=== PATIENT | male | born 1990 | race Caucasian/White ===

== ENCOUNTER 2019-02-27 02:20 | Emergency (ER) | payer BC, SELFPAY ==
--- NOTE | 2019-02-27 02:21 | ED.GENADUL_ITS ---
Discharge Plan Disposition Patient Disposition: HOME Condition: Good Discharge Details Chief Complaint: EyeProblem Clinical Impression: Irritation of left eye Primary Care Provider: Azra Ferrell ED Provider: Marc Nolan Home Meds and New Rx's Prescriptions: Continued methadone 40 mg Tablet,Soluble 110 mg PO DAILY RF: 0 Discharge Instructions Additional Instructions: Try [id number] Visine type eyedrops for the next day. Follow-up with your eye physician if continues to bother you on Friday. Return to ED for increased pain, swelling, change in vision, other concerns or problems. Referrals: [facility] [Outside] Medical Decision Making No obvious foreign body seen. No fluorescein uptake. Localized erythema and swelling noted medial upper left eyelid when inverted. No obvious foreign body. Eyelid swipe a couple of times with Q-tip. Will place Pepito lens and irrigate. Patient did not really tolerate Pepito lens. Suspect the erythema and localized swelling is causing the irritation he is feeling. Will try [id number] Visine drops but I suspect this is likely to get better shortly on its own. He may follow-up with his eye doctor in the next couple days if not resolved. Return to ED for increasing pain, swelling, vision change. HPI General Mode of arrival: ambulatory . Date/Time Provider Initiated Documentation: 02/27/19 02:21 . Limitations to Documentation: no limitations . Information obtained by: patient and RN notes reviewed . HPI Narrative: Patient presents to ED with left eye irritation. 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 Is not sure what got into his eye today but has had irritation despite irrigating a number of times. He feels like it stuck up under the eyelid. He denies other complaints. Related Data Home Medications Medication Instructions Recorded Confirmed methadone 110 mg PO DAILY 02/27/19 02/27/19 Allergies Allergy/AdvReac Type Severity Reaction Status Date / Time No Known Allergies Allergy Unverified 02/27/19 02:25 Review of Systems Eyes Eyes: Denies change in vision, Reports irritation and Denies eye pain ENT Ears, Nose, Mouth, and Throat: Denies nasal congestion, Denies sinus pain and Denies sore throat [facility] Medical History (Updated 02/27/19 @ 03:06 by Marc Nolan MD) History of substance abuse (Chronic) Vertigo (Inactive) Social History Smoking/Tobacco Use Status: Current every day Alcohol Intake: current Alcohol Intake frequency: holidays/special occasions only Drug use: Daily Substance use type: marijuana Do you feel safe at home: Yes Do you feel safe in your relationship?: Yes Exam Const General: cooperative, healthy appearing and comfortable Nutritional Appearance: well nourished Orientation: alert and oriented x3 HENMT Head: normocephalic and atraumatic Face and sinus: normal facial exam Eyes Periorbital: periorbital findings normal Eyelids: eyelid abnormality left upper eyelid (localized erythema/swelling medial aspect noted when everted) erythema and swelling; no crusting or scaling of lid margins Conjunctivae: conjunctival abnormality left conjunctival injection Sclera: sclerae normal Cornea: corneas normal and fluorescein used Pupils: PERRL EOM: EOM intact bilaterally Other: No foreign body or corneal abrasion seen with slit lamp exam. Upper eyelid everted and swiped with Q-tip, no obvious foreign body.
[2019-02-27 02:24] VITALS: BP 168/92; PULSE 112; RESP 20; TEMP 36.7; O2SAT 100
[2019-02-27] MEDS: Tetracaine 0.5% 4 ML BTL (02:57)
[2019-02-27] MEDS: Fluorescein STRIPS 100/BOX 1 MG (02:57)
[2019-02-27 03:44] VITALS: BP 168/92; PULSE 112; RESP 20; TEMP 36.7; O2SAT 100
== END 2019-02-27 03:45 | disposition home or self-care (01) ==
PROVIDERS: Emergency Provider Emergency Medicine; PCP Nurse Practitioner Family
DX: H57.89 Other specified disorders of eye and adnexa (principal); H57.12 Ocular pain, left eye; H02.844 Edema of left upper eyelid
CPT/HCPCS: 99284; 99283

== ENCOUNTER 2020-01-21 03:10 | Outpatient (CLI) | payer BC, SELFPAY ==
[2020-01-21 10:14] LABS: Anion Gap 8.1 mmol/L (3-11); BUN 7 mg/dL (7-18); CO2 27.9 mmol/L (21.0-32.0); CREATININE 0.87 mg/dL (0.70-1.30); Calcium 9.2 mg/dL (8.5-10.1); Calculated LDL 126 mg/dL (<100); Chloride 105 mmol/L (98-107); Cholesterol 195 mg/dL (<200); Glucose 94 mg/dL (74-106); HDL Cholesterol 48 mg/dL (40-60); Sodium 141 mmol/L (136-145); Triglyceride 108 mg/dL (<150)
== END 2020-01-21 03:30 ==
PROVIDERS: PCP Student in an Organized Health Care Education/Training Program; Visit Provider Student in an Organized Health Care Education/Training Program
DX: E86.0 Dehydration (principal); Z13.220 Encounter for screening for lipoid disorders
CPT/HCPCS: 36415; 80048; 80061

== ENCOUNTER 2020-02-11 03:30 | Outpatient (CLI) | payer BC, SELFPAY ==
[2020-02-11 12:02] LABS: TSH (W/Ref FT4) 1.69 uIU/mL (0.36-3.74)
== END 2020-02-11 03:50 ==
PROVIDERS: PCP Student in an Organized Health Care Education/Training Program; Visit Provider Student in an Organized Health Care Education/Training Program
DX: R63.4 Abnormal weight loss (principal)
CPT/HCPCS: 36415; 84443

== ENCOUNTER 2022-04-02 10:58 | Outpatient (CLI) | payer BC, SELFPAY ==
--- NOTE | 2022-04-02 10:30 | DI.RAD_ITS ---
Exam(s) XR CHEST 2V PA LATERAL EXAM: XR CHEST 2V PA LATERAL CLINICAL HISTORY: intermittent cough, SOB, R05.9, R06.02. TECHNIQUE: 2D digital imaging was performed. COMPARISON: No exams were available for comparison FINDINGS: 2 views: Heart size is normal. The mediastinum is not widened. There is bilateral hyperinflation but no infiltrates nor pleural effusions. No pneumothorax. IMPRESSION: Pulmonary hyperinflation. No infiltrates. DATA REPOSITORY: RADIATION DOSE DELIVERED:
== END 2022-04-02 11:18 ==
LOC: DI 11:00
PROVIDERS: PCP Student in an Organized Health Care Education/Training Program; Visit Provider Nurse Practitioner
DX: R05.9 Cough, unspecified (principal); R06.02 Shortness of breath; R91.8 Other nonspecific abnormal finding of lung field
CPT/HCPCS: 71046

== ENCOUNTER 2022-07-05 01:49 | Outpatient (CLI) | payer BC, SELFPAY ==
[2022-07-05 09:32] LABS: Abs Immature Grans 0.01 10^3/uL (0.0-0.06); Absolute Basophil Count 0.02 10^3/uL (0.0-0.2); Absolute Eosinophil Count 0.06 10^3/uL (0.0-0.7); Absolute Lymphocyte Count 1.95 10^3/uL (1.2-3.4); Absolute Monocyte Count 0.38 10^3/uL (0.1-0.8); Absolute Neutrophil Count 2.99 10^3/uL (1.2-6.7); Basophils % 0.4; Eosinophils % 1.1; HCT 38.6 % (40.0-50.0); HGB 13.2 g/dL (13.5-17.5); Immature Grans % 0.2; MCH 30.7 pg (27.0-33.0); MCHC 34.2 % (32.0-36.0); MCV 90 fL (80-95); MPV 8.7 fL (8.0-11.0); Neutrophils % 55.3; Platelet Count 292 10^3/uL (130-400); RDW 11.9 % (11.8-14.1); RDW-SD 39.3 fL; WBC 5.41 10^3/uL (4.4-10.8)
[2022-07-05 10:14] LABS: ALT 25 U/L (16-63); AST 19 U/L (15-37); Albumin 4.1 g/dL (3.4-5.0); Alkaline Phosphatase 71 U/L (46-116); Anion Gap 8.1 mmol/L (3-11); BUN 12 mg/dL (7-18); Bilirubin, Total 0.4 mg/dL (0.2-1.0); CO2 30.9 mmol/L (21.0-32.0); CREATININE 0.8 mg/dL (0.70-1.30); Calcium 8.7 mg/dL (8.5-10.1); Calculated LDL 110 mg/dL (<100); Chloride 103 mmol/L (98-107); Cholesterol 176 mg/dL (<200); Glucose 102 mg/dL (74-106); HDL Cholesterol 57 mg/dL (40-60); Potassium 4.2 mmol/L (3.5-5.1); Sodium 142 mmol/L (136-145); TSH (W/Ref FT4) 1.56 uIU/mL (0.36-3.74); Total Protein 7.3 g/dL (6.4-8.2); Triglyceride 47 mg/dL (<150)
[2022-07-11 14:10] LABS: Testosterone, Free 10.2 ng/dL (4.85-19.0); Testosterone, Total 509 ng/dL (240-950)
[2022-07-11 19:47] LABS: Cortisol, Free 0.125 mcg/dL
== END 2022-07-05 01:50 | disposition home or self-care (01) ==
LOC: LBO 01:50
PROVIDERS: PCP Student in an Organized Health Care Education/Training Program; Visit Provider Student in an Organized Health Care Education/Training Program
DX: D47.09 Other mast cell neoplasms of uncertain behavior (principal); E27.40 Unspecified adrenocortical insufficiency; E34.9 Endocrine disorder, unspecified; L81.9 Disorder of pigmentation, unspecified; R23.2 Flushing; F11.20 Opioid dependence, uncomplicated; Z13.220 Encounter for screening for lipoid disorders; E27.9 Disorder of adrenal gland, unspecified
CPT/HCPCS: 36415; 80053; 80061; 82530; 82533; 83520; 84402; 84403; 84443; 85025

== ENCOUNTER 2022-09-22 23:56 | Outpatient (CLI) | payer BC, SELFPAY | END 2022-09-22 23:57 | disposition home or self-care (01) | LOC: DI.KIM 23:58 | PROVIDERS: PCP Student in an Organized Health Care Education/Training Program; Visit Provider Student in an Organized Health Care Education/Training Program | DX: Z13.6 Encounter for screening for cardiovascular disorders (principal) | CPT/HCPCS: 93010 ==

== ENCOUNTER 2022-10-22 03:23 | Outpatient (CLI) | payer BC, SELFPAY ==
[2022-10-22 14:06] LABS: Abs Immature Grans 0.01 10^3/uL (0.0-0.06); Absolute Basophil Count 0.03 10^3/uL (0.0-0.2); Absolute Eosinophil Count 0.13 10^3/uL (0.0-0.7); Absolute Lymphocyte Count 2.42 10^3/uL (1.2-3.4); Absolute Monocyte Count 0.48 10^3/uL (0.1-0.8); Absolute Neutrophil Count 3.59 10^3/uL (1.2-6.7); Basophils % 0.5; HCT 41.3 % (40.0-50.0); HGB 14.5 g/dL (13.5-17.5); Immature Grans % 0.2; Lymphocytes % 36.3; MCH 30.8 pg (27.0-33.0); MCHC 35.1 % (32.0-36.0); MCV 88 fL (80-95); MPV 8.9 fL (8.0-11.0); Monocytes % 7.2; Neutrophils % 53.8; Platelet Count 314 10^3/uL (130-400); RBC 4.71 10^6/uL (4.36-5.78); RDW 11.8 % (11.8-14.1); RDW-SD 38.2 fL; WBC 6.66 10^3/uL (4.4-10.8)
[2022-10-22 14:55] LABS: Hemoglobin A1C 5.2 % (<5.7)
== END 2022-10-22 03:24 | disposition home or self-care (01) ==
LOC: LBO 03:23
PROVIDERS: PCP Student in an Organized Health Care Education/Training Program; Visit Provider Student in an Organized Health Care Education/Training Program
DX: D64.9 Anemia, unspecified (principal); R35.1 Nocturia; R23.2 Flushing; E27.40 Unspecified adrenocortical insufficiency; R68.89 Other general symptoms and signs; Z79.899 Other long term (current) drug therapy
CPT/HCPCS: 36415; 83036; 85025

== ENCOUNTER 2022-11-22 07:37 | Outpatient (CLI) | payer BC, SELFPAY ==
--- NOTE | 2022-11-22 07:30 | RT.EKG_ITS ---
APPROVED REPORT Exam: Resting ECG Reason for Exam: Evaluate and establish baseline Patient Location: O HR:96 bpm ECG Measurements Heart Rate 96 AXIS WA 138 P 72 QRSd 95 QRS 66 QT 411 T -29 QTc 520 Conclusion Sinus rhythm...normal P axis, V-rate 50- 99 Borderline T abnormalities, inferior leads...T flat/neg, II III aVF Borderline ST elevation, anterior leads...ST >0.15mV in V1-V4
== END 2022-11-22 07:38 | disposition home or self-care (01) ==
LOC: DI.KIM 07:39
PROVIDERS: PCP Student in an Organized Health Care Education/Training Program; Visit Provider Student in an Organized Health Care Education/Training Program
DX: F11.20 Opioid dependence, uncomplicated (principal)
CPT/HCPCS: 93010

== ENCOUNTER 2023-01-03 07:31 | Outpatient (CLI) | payer BC, SELFPAY ==
--- NOTE | 2023-01-03 07:30 | RT.EKG_ITS ---
APPROVED REPORT Exam: Resting ECG Reason for Exam: repeat EKG Patient Location: O HR:81 bpm ECG Measurements Heart Rate 81 AXIS NH 133 P 79 QRSd 100 QRS 66 QT 388 T 59 QTc 451 Conclusion Sinus rhythm...normal P axis, V-rate 50- 99 Normal Electrocardiogram
== END 2023-01-03 07:32 | disposition home or self-care (01) ==
LOC: DI.KIM 07:32
PROVIDERS: PCP Student in an Organized Health Care Education/Training Program; Visit Provider Student in an Organized Health Care Education/Training Program
DX: F11.20 Opioid dependence, uncomplicated (principal)
CPT/HCPCS: 93010

== ENCOUNTER 2023-01-31 07:28 | Outpatient (CLI) | payer BC, SELFPAY ==
--- NOTE | 2023-01-31 07:15 | RT.EKG_ITS ---
APPROVED REPORT Exam: Resting ECG Reason for Exam: Monitoring QT prolongation Patient Location: O HR:77 bpm ECG Measurements Heart Rate 77 AXIS WV 135 P 68 QRSd 91 QRS 60 QT 410 T 51 QTc 465 Conclusion Sinus rhythm...normal P axis, V-rate 50- 99 Probable left atrial enlargement...P >50mS, <-0.10mV V1 RSR' in V1 or V2, probably normal variant...small R' only Probable left ventricular hypertrophy...multiple LVH criteria Baseline wander in lead(s) V1
== END 2023-01-31 07:29 | disposition home or self-care (01) ==
LOC: DI.KIM 07:29
PROVIDERS: PCP Student in an Organized Health Care Education/Training Program; Visit Provider Student in an Organized Health Care Education/Training Program
DX: F11.20 Opioid dependence, uncomplicated (principal); R94.31 Abnormal electrocardiogram [ECG] [EKG]
CPT/HCPCS: 93010

== ENCOUNTER 2023-04-11 02:11 | Outpatient (CLI) | payer BC, SELFPAY ==
[2023-04-11 08:07] LABS: Abs Immature Grans 0.02 10^3/uL (0.0-0.06); Absolute Basophil Count 0.03 10^3/uL (0.0-0.2); Absolute Eosinophil Count 0.07 10^3/uL (0.0-0.7); Absolute Monocyte Count 0.59 10^3/uL (0.1-0.8); Absolute Neutrophil Count 4.74 10^3/uL (1.2-6.7); Basophils % 0.4; Eosinophils % 0.9; HCT 40.7 % (40.0-50.0); HGB 13.9 g/dL (13.5-17.5); Immature Grans % 0.3; Lymphocytes % 26.8; MCH 29.8 pg (27.0-33.0); MCHC 34.2 % (32.0-36.0); MCV 87 fL (80-95); MPV 8.6 fL (8.0-11.0); Monocytes % 7.9; Neutrophils % 63.7; Platelet Count 300 10^3/uL (130-400); RBC 4.66 10^6/uL (4.36-5.78); RDW 11.9 % (11.8-14.1); RDW-SD 38.4 fL; WBC 7.45 10^3/uL (4.4-10.8)
[2023-04-11 09:29] LABS: Iron 103 ug/dL (65-175); Total Iron Binding Capacity 335 ug/dL (250-450); Transferrin Sat 31 % (20-55)
[2023-04-11 09:30] LABS: ALT 33 U/L (16-63); AST 26 U/L (15-37); Albumin 4.3 g/dL (3.4-5.0); Alkaline Phosphatase 72 U/L (46-116); Anion Gap 10.2 mmol/L (3-11); BUN 12 mg/dL (7-18); Bilirubin, Total 0.5 mg/dL (0.2-1.0); CO2 29.8 mmol/L (21.0-32.0); CREATININE 0.8 mg/dL (0.70-1.30); Calcium 9.1 mg/dL (8.5-10.1); Chloride 103 mmol/L (98-107); Estimated GFR 121.34 (mL/min/1.73m2); Glucose 115 mg/dL (74-106); Potassium 3.5 mmol/L (3.5-5.1); Sodium 143 mmol/L (136-145); Total Protein 7.6 g/dL (6.4-8.2); Vitamin B12 1478 pg/mL (193-986)
[2023-04-11 10:06] LABS: Folate 18.8 ng/mL (8.6-20.0)
[2023-04-13 23:37] LABS: Lab Add On Test DONE
[2023-04-13 23:56] LABS: Hemoglobin A1C 5.2 % (<5.7)
== END 2023-04-11 02:12 | disposition home or self-care (01) ==
LOC: LBO 02:13
PROVIDERS: PCP Student in an Organized Health Care Education/Training Program; Visit Provider Student in an Organized Health Care Education/Training Program
DX: K76.9 Liver disease, unspecified (principal); Z91.89 Other specified personal risk factors, not elsewhere classified; I10 Essential (primary) hypertension; R73.09 Other abnormal glucose
CPT/HCPCS: 36415; 80053; 82607; 82746; 83036; 83540; 83550; 85025

== ENCOUNTER → 2023-04-25 10:29 | Outpatient (CLI) | payer BC, SELFPAY ==
--- NOTE | 2023-04-25 08:50 | DI.RAD_ITS ---
Exam(s) XR ABDOMEN FLAT UPRIGHT EXAM: 2D digital imaging was performed. CLINICAL HISTORY: r/o obstruction, r/o obstipation R14.0 ABD DISTENSION. COMPARISON: CR XR CHEST 2V PA LATERAL from 04/02/2022 TECHNIQUE: Supine and upright views of the abdomen was performed. Four images were obtained. FINDINGS: LUNG BASES: Clear. BOWEL GAS PATTERN: Nondistended. There is a large amount of stool throughout the colon suggesting con stipation. FREE AIR: None. CALCIFICATIONS: No radiopaque calcifications. OSSEOUS STRUCTURES: Normal for age. OTHER FINDINGS: None. IMPRESSION: 1. No evidence of bowel obstruction. 2. Findings consistent with constipation. DATA REPOSITORY: RADIATION DOSE DELIVERED:
== END ==
PROVIDERS: PCP Student in an Organized Health Care Education/Training Program; Visit Provider Student in an Organized Health Care Education/Training Program
DX: R14.0 Abdominal distension (gaseous) (principal); K59.09 Other constipation
CPT/HCPCS: 74019

== ENCOUNTER 2023-05-09 07:27 | Outpatient (CLI) | payer BC, SELFPAY ==
--- NOTE | 2023-05-09 07:15 | RT.EKG_ITS ---
APPROVED REPORT Exam: Resting ECG Reason for Exam: QT prolongation/High risk medication use Patient Location: O HR:82 bpm ECG Measurements Heart Rate 82 AXIS TN 140 P 70 QRSd 103 QRS 50 QT 399 T 28 QTc 466 Conclusion Sinus rhythm...normal P axis, V-rate 50- 99 Normal Electrocardiogram
== END 2023-05-09 07:28 | disposition home or self-care (01) ==
PROVIDERS: PCP Student in an Organized Health Care Education/Training Program; Visit Provider Student in an Organized Health Care Education/Training Program
DX: Z79.899 Other long term (current) drug therapy (principal); R94.31 Abnormal electrocardiogram [ECG] [EKG]
CPT/HCPCS: 93010